=== PATIENT | male | born 2000 | race Two or more races ===

== ENCOUNTER 2022-01-23 20:46 | Emergency (ER) | payer MEDICAID, OTHER ==
[~2022-01-23] VITALS: Ht 180.3 cm; Wt 68.0 kg
--- NOTE | 2022-01-23 21:22 | NUR ---
EKG AT BEDSIDE
[2022-01-23] MEDS ORDERED: IBUPROFEN 600 MG TABLET ONE (21:25)
--- NOTE | 2022-01-23 21:26 | NUR ---
Sue tang in [facility] - 01/23/22 at 2147 by BARBARA XRAY AT BEDSIDE
[2022-01-23] MEDS: IBUPROFEN 600 MG TABLET PO ONE ×2 (21:29→21:56)
--- NOTE | 2022-01-23 21:30 | NUR ---
Note kitty in [facility] - 01/23/22 at 2158 by BARBARA PATIENT REFUSED MOTRIN 600MG. STATES HE LAST TOOK SOME AT 5PM. DR LAWRENCE. PATIENT REFUSED AND IS PAIN FREE AT THE MOMENT.
--- NOTE | 2022-01-23 21:55 | NUR ---
XRAY AT BEDSIDE
--- NOTE | 2022-01-23 22:05 | NUR ---
JAYSON RANGEL RESPCOREY POZO: [phone]
[2022-01-23] MEDS ORDERED: IBUP-1955 PO (22:10)
--- NOTE | 2022-01-23 22:47 | NUR ---
Patient discharged to home in stable condition. Written and verbal after care instructions given. Patient verbalizes understanding of instruction.
[2022-01-23 22:48] VITALS: BP 113/60
== END 2022-01-23 22:48 | disposition home or self-care (01) ==
LOC: ER 20:49
DX: R07.89 Other chest pain (principal); F17.200 Nicotine dependence, unspecified, uncomplicated; Z88.8 Allergy status to other drugs, medicaments and biological substances
CPT/HCPCS: 71045-TC